=== PATIENT | female | born 1950 | race Asian ===

== ENCOUNTER → 2016-10-27 | Outpatient (CLI) | payer OTHER ==
[~2016-10-27] MED LIST: ASPI-556 PO; ATOR20TA86 PO; DIGO125T87 PO; LEVO75TA4 PO; PIOG30TA2 PO; TELM40 PO
[2016-10-27 14:06] LABS: HEMOGLOBIN A1C 6.5 % (4.5-6.2)
[2016-10-27 14:15] LABS: THYROID STIMULATING HORMONE 2.1 uIU/mL (0.36-3.74)
== END | disposition home or self-care (01) ==
LOC: LABPV 10:04
PROVIDERS: ATTEND Pediatrics
DX: E11.9 Type 2 diabetes mellitus without complications (principal); E03.9 Hypothyroidism, unspecified; B35.1 Tinea unguium
CPT/HCPCS: 83036; 84443; 87101

== ENCOUNTER → 2017-02-03 | Outpatient (CLI) | payer OTHER ==
[2017-02-03 11:58] LABS: HEMOGLOBIN A1C 6.5 % (4.5-6.2)
[2017-02-03 12:03] LABS: THYROID STIMULATING HORMONE 1.47 uIU/mL (0.36-3.74)
== END | disposition home or self-care (01) ==
LOC: LABPV 11:02
PROVIDERS: ATTEND Pediatrics
DX: E11.9 Type 2 diabetes mellitus without complications (principal); E03.9 Hypothyroidism, unspecified
CPT/HCPCS: 83036; 84443

== ENCOUNTER 2021-08-22 10:58 | Emergency (ER) | payer MEDICARE ==
[~2021-08-22] VITALS: Ht 157.5 cm; Wt 51.4 kg
[~2021-08-22 10:58] MED LIST changes: +AMLO-258 PO; +DIGO125T72 PO; -DIGO125T87 PO; +METF-1211 PO; -PIOG30TA2 PO; -TELM40 PO
[2021-08-22 11:06] VITALS: BP 121/66
[2021-08-22 12:18] LABS: COVID AG,FIA SOURCE NASOPHARYNGEAL
== END 2021-08-22 12:19 | disposition home or self-care (01) ==
LOC: EMS 11:01
DX: R51.9 Headache, unspecified (principal); I10 Essential (primary) hypertension; E11.9 Type 2 diabetes mellitus without complications; E78.00 Pure hypercholesterolemia, unspecified; Z79.84 Long term (current) use of oral hypoglycemic drugs; Z79.82 Long term (current) use of aspirin; Z79.899 Other long term (current) drug therapy; Z20.822 Contact with and (suspected) exposure to COVID-19
CPT/HCPCS: 82962; 87426; 99283; U0003; 96372